=== PATIENT | female | born 1985 | race Caucasian/White ===

== ENCOUNTER 2017-01-18 18:14 | Emergency (ER) | payer SELFPAY ==
[~2017-01-18] VITALS: Ht 167.6 cm; Wt 93.5 kg
[2017-01-18 19:16] VITALS: BP 136/78
== END 2017-01-18 19:18 | disposition home or self-care (01) ==
LOC: ED 18:14
DX: G44.209 Tension-type headache, unspecified, not intractable (principal); R09.81 Nasal congestion; R03.0 Elevated blood-pressure reading, without diagnosis of hypertension; G43.909 Migraine, unspecified, not intractable, without status migrainosus; F41.9 Anxiety disorder, unspecified; J45.909 Unspecified asthma, uncomplicated; Z88.6 Allergy status to analgesic agent
CPT/HCPCS: Q0162